=== PATIENT | female | born 1970 | race Caucasian/White ===

== ENCOUNTER 2019-04-03 05:58 | Day surgery (SDC) | payer OTHER ==
[2019-04-03] MEDS ORDERED: ONDANSETRON HCL/PF 4 MG/ 2ML VIAL ONE (08:48)
[2019-04-03] MEDS ORDERED: MIDAZOLAM HCL 2 MG/2 ML VIAL ONE (08:48)
[2019-04-03] MEDS ORDERED: BUPIV. HCL 0.25% (2.5MG/ML)/EPI. (1:200,000) PF 30 ML VIAL IJ ONE (08:48)
[2019-04-03] MEDS ORDERED: ceFAZolin SODIUM 1 GM VIAL ONE (08:48)
[2019-04-03] MEDS ORDERED: PROPOFOL 200 MG/20 ML VIAL IV ONE (08:48)
[2019-04-03] MEDS ORDERED: SUGAMMADEX SODIUM 200 MG/2 ML VIAL IV ONE (08:48)
[2019-04-03] MEDS ORDERED: DEXAMETHASONE SODIUM PHOSPHATE 10 MG/ML VIAL ONE (08:48)
[2019-04-03] MEDS ORDERED: ROCURONIUM BROMIDE 10 MG/ML 5ML VIAL ONE (08:48)
[2019-04-03] MEDS ORDERED: GLYCOPYRROLATE 0.2 MG/1 ML 1 ML ONE (08:48)
[2019-04-03] MEDS ORDERED: SCOPOLAMINE HYDROBROMIDE 1.5MG/72HR PATCH TD ONE (08:48)
[2019-04-03] MEDS ORDERED: MEPERIDINE (NF) 100 MG/ML INJ ONE (08:48)
[2019-04-03] MEDS ORDERED: SODIUM CHLORIDE IRRIG SOLUTION 3,000 ML IRRIG.SOLN IR ONE (08:48)
[2019-04-03] MEDS ORDERED: LACTATED RINGERS 1,000 ML IV.SOLN IV ONE (08:48)
[2019-04-03] MEDS ORDERED: FAMOTIDINE 20 MG/2 ML VIAL IV ONE (08:48)
[2019-04-03] MEDS ORDERED: PHENYLEPHRINE HCL 10 MG/1 ML ONE (08:48)
[2019-04-03] MEDS ORDERED: LIDOCAINE HCL 2% PF 100MG/5ML VIAL IJ ONE (08:48)
[2019-04-03] MEDS ORDERED: LIDOCAINE HCL 1% PF 300MG/30ML VIAL ONE (08:48)
[2019-04-03] MEDS ORDERED: SEVOFLURANE 250 ML LIQUID IH ONE (08:48)
== END 2019-04-03 10:04 | disposition other institution (70) ==
LOC: OPSURG 05:58 → UNDOADMIN 10:05 → SOUTH 10:05
PROVIDERS: ATTEND Surgery
DX: E66.01 Morbid (severe) obesity due to excess calories (principal); K21.9 Gastro-esophageal reflux disease without esophagitis; G47.33 Obstructive sleep apnea (adult) (pediatric); I10 Essential (primary) hypertension; E11.9 Type 2 diabetes mellitus without complications; Z68.42 Body mass index [BMI] 45.0-49.9, adult
CPT/HCPCS: J0690; J2001; J2175; J2250; J2370; J2405; J2704; J3490; A9270-GY; J7120

== ENCOUNTER 2019-04-03 10:05 | Inpatient (IN) | payer OTHER ==
[2019-04-03] MEDS ORDERED: ONDANSETRON HCL/PF 4 MG/ 2ML VIAL ONE (10:29)
[2019-04-03] MEDS ORDERED: KETOROLAC TROMETHAMINE 30 MG/1ML VIAL ONE ×2 (10:29→19:42)
[2019-04-03] MEDS ORDERED: NICOTINE 21mg 1 EACH PATCH.TD24 TD ONE (10:43)
[2019-04-03] MEDS ORDERED: NORMAL SALINE 1,000 ML IV.SOLN IV ONE ×2 (10:47→18:10)
[2019-04-03] MEDS ORDERED: INSULIN REGULAR, HUMAN 100 UNIT/ML 10ML VIAL ONE (11:46)
[2019-04-03] MEDS ORDERED: MORPHINE SULFATE 2 MG/ML VIAL ONE ×2 (13:56→18:10)
[2019-04-03] MEDS ORDERED: ceFAZolin SODIUM 1 GM/50 ML PIGGYBACK IV ONE (15:23)
[2019-04-04] MEDS ORDERED: ceFAZolin SODIUM 1 GM/50 ML PIGGYBACK IV ONE (00:26)
[2019-04-04] MEDS ORDERED: NORMAL SALINE 1,000 ML IV.SOLN IV ONE ×3 (00:26→15:57)
[2019-04-04] MEDS ORDERED: MORPHINE SULFATE 2 MG/ML VIAL ONE ×2 (00:58→05:52)
[2019-04-04] MEDS ORDERED: KETOROLAC TROMETHAMINE 30 MG/1ML VIAL ONE ×2 (02:42→19:16)
[2019-04-04] MEDS ORDERED: IPRATROPIUM/ALBUTEROL SULFATE 3 ML AMPUL.NEB NEB ONE ×2 (06:27→11:18)
[2019-04-04] MEDS ORDERED: ENOXAPARIN SODIUM 40 MG/0.4 ML DISP.SYRIN SQ ONE (08:25)
[2019-04-04] MEDS ORDERED: SERTRALINE HCL 50 MG TABLET ONE (08:25)
[2019-04-04] MEDS ORDERED: QUEtiapine FUMARATE 25 MG TABLET PO ONE ×2 (08:25)
[2019-04-04] MEDS ORDERED: lamoTRIgine 100 MG TABLET PO ONE ×2 (08:26→19:54)
[2019-04-04] MEDS ORDERED: FAMOTIDINE 20 MG/2 ML VIAL IV ONE (08:38)
[2019-04-04] MEDS ORDERED: HYDROcodone-ACETAMIN 7.5-325/15ML SOLN UD CUP PO ONE ×2 (12:39→17:34)
[2019-04-04] MEDS ORDERED: NICOTINE 21mg 1 EACH PATCH.TD24 TD ONE (12:45)
[2019-04-05] MEDS ORDERED: HYDROcodone-ACETAMIN 7.5-325/15ML SOLN UD CUP PO ONE ×2 (00:39→06:26)
[2019-04-05] MEDS ORDERED: ENOXAPARIN SODIUM 40 MG/0.4 ML DISP.SYRIN SQ ONE (08:09)
[2019-04-05] MEDS ORDERED: lamoTRIgine 100 MG TABLET PO ONE (08:10)
[2019-04-21 12:50] LABS: eGFR (Non-African) > 60
[2019-04-21 12:51] LABS: BASOPHILS % 0.6 % (0.0-1.5); NEUTROPHILS # 7.3 # k/uL (1.4-7.7)
== END 2019-04-05 09:30 | disposition home or self-care (01) | DRG 621 ==
LOC: SOUTH 10:05
PROVIDERS: ADMIT Nurse Practitioner Family; ATTEND Nurse Practitioner Family
PROC: 0DB64Z3 Excision of Stomach, Percutaneous Endoscopic Approach, Vertical (ICD-10-PCS; principal; 2019-04-03)
DX: E66.01 Morbid (severe) obesity due to excess calories (principal); G47.33 Obstructive sleep apnea (adult) (pediatric); E78.00 Pure hypercholesterolemia, unspecified; F41.9 Anxiety disorder, unspecified; K21.9 Gastro-esophageal reflux disease without esophagitis; G25.81 Restless legs syndrome; I10 Essential (primary) hypertension; J44.9 Chronic obstructive pulmonary disease, unspecified; M79.7 Fibromyalgia; G62.9 Polyneuropathy, unspecified; E11.9 Type 2 diabetes mellitus without complications; R11.2 Nausea with vomiting, unspecified; G43.909 Migraine, unspecified, not intractable, without status migrainosus; M17.12 Unilateral primary osteoarthritis, left knee; K59.00 Constipation, unspecified; G89.29 Other chronic pain; M54.5 Low back pain; R33.9 Retention of urine, unspecified; Z87.01 Personal history of pneumonia (recurrent); Z68.42 Body mass index [BMI] 45.0-49.9, adult; Z90.710 Acquired absence of both cervix and uterus; Z87.440 Personal history of urinary (tract) infections; Z88.5 Allergy status to narcotic agent; Z79.4 Long term (current) use of insulin; Z79.899 Other long term (current) drug therapy; Z79.82 Long term (current) use of aspirin; Z86.711 Personal history of pulmonary embolism; Z87.891 Personal history of nicotine dependence
CPT/HCPCS: 36415; 80053; 85025; A9270; J1650; J1815; J1885; J2270; J2405; J7030; 99221; S1016